=== PATIENT | male | born 1960 | race Caucasian/White ===

== ENCOUNTER → 2020-12-28 | Day surgery (SDC) | payer OTHER ==
[~2020-12-28] VITALS: Ht 170.2 cm; Wt 106.6 kg
[2020-12-28 07:50] LABS: HCT 43.6 % (42.0-52.0); HGB 14.7 g/dl (13.2-18.0); MCH 29.5 pg (25.0-31.0); MCHC 33.7 g/dL (32.0-36.0); MCV 87.6 fL (78.0-100.0); MPV 10.4 fL (6.0-9.5); RBC 4.98 M/uL (4.70-6.00); RDW 12.6 % (11.5-14.0); WBC 6.2 K/uL (4.0-10.5)
[2020-12-28 08:11] LABS: ALBUMIN 3.8 g/dL (3.4-5.0); BILIRUBIN - TOTAL 0.4 mg/dL (0.2-1.0); BUN/CREAT RATIO (CALC) 18.2 RATIO; CREATININE 0.88 mg/dL (0.67-1.17); GLOBULIN (CALCULATION) 3.6 g/dL; POTASSIUM 4.1 mmol/L (3.5-5.1); TOTAL PROTEIN 7.4 g/dL (6.4-8.2)
== END | disposition home or self-care (01) ==
LOC: FAS 07:24
PROVIDERS: Surgery
DX: Z12.11 Encounter for screening for malignant neoplasm of colon (principal); Z12.12 Encounter for screening for malignant neoplasm of rectum; F17.200 Nicotine dependence, unspecified, uncomplicated; D12.3 Benign neoplasm of transverse colon
CPT/HCPCS: 36415; 80053; J2250; J2704; J7120